=== PATIENT | female | born 1950 | race Caucasian/White ===

== ENCOUNTER 2019-01-15 20:33 | Inpatient (IN) | payer BC ==
[~2019-01-15] VITALS: Ht 160 cm; Wt 42.3 kg
--- NOTE | 2019-01-15 20:52 | NUR ---
Patient to ER bed 1 to gown for evaluation. Side rails up.
--- NOTE | 2019-01-15 20:58 | NUR ---
Pt complains of generalized weakness, numbness to bilateral feet, unintentional weight loss. Per angel, pt had gone to [place] two years ago and got mosquito bites. Since then, pt has been "losing weight drastically." Pt eats alot but does not gain any weight. Per daughter, pt has "unofficial diagnose of Parkinsons but is not sure because she never goes to the doctor." Pt had eaten Mediterranean food last night and had started to vomit multiple times after. No other injuries/complaints per patient or noted.
[2019-01-15 21:00] VITALS: BP_SYST 138
--- NOTE | 2019-01-15 21:00 | NUR ---
ER Dr. Cotto at bedside examining patient.
--- NOTE | 2019-01-15 21:08 | NUR ---
# 18 gauge angiocath placed to LT AC. Use of asceptic technique. Opsite placed over site. Blood return noted. Blood for lab drawn from site. Flushed with 10 cc of normal saline. No evidence of infiltration noted. Patient tolerated well.
[2019-01-15] MEDS ORDERED: NACL 0.9% 1,000 ML IV ONE (21:15)
[2019-01-15 21:18] LABS: BASOPHILS % (AUTO) 0.1 % (0.0-2.0); HEMATOCRIT 47.8 % (36-48); HEMOGLOBIN 15.7 g/dL (12.0-16.0); LYMPHOCYTES # (AUTO) 1.4 K/uL (1.0-5.5); LYMPHOCYTES % (AUTO) 14.4 % (20.5-51.5); MEAN CORPUSCULAR HEMOGLOBIN 31 pg (27-31); MEAN CORPUSCULAR HGB CONC 33 % (32-36); MEAN CORPUSCULAR VOLUME 95 fL (79.0-98.0); MONOCYTES # (AUTO) 0.3 K/uL (0.0-1.0); MONOCYTES % (AUTO) 3.2 % (1.7-9.3); NEUTROPHILS # (AUTO) 8.2 K/uL (1.8-7.7); NEUTROPHILS % (AUTO) 82.3 % (40.0-70.0); PLATELET COUNT (AUTO) 239 K/uL (130-430); RED BLOOD CELL COUNT(AUTO) 5.05 MIL/uL (4.2-6.2); RED CELL DISTRIBUTION WIDTH 12.8 % (9.0-15.0)
[2019-01-15 21:22] LABS: BILIRUBIN,URINE NEGATIVE (NEGATIVE); CLARITY/URINE CLEAR (CLEAR); COLOR,URINE YELLOW (YELLOW); GLUCOSE,URINE 3+ (NEGATIVE); KETONES,URINE 3+ (NEGATIVE); LEUKOCYTE ESTERASE ,URINE NEGATIVE (NEGATIVE); NITRITE, URINE NEGATIVE (NEGATIVE); PH,URINE 5.5 (5.0-8.0); PROTEIN URINE NEGATIVE (NEGATIVE); UROBILINOGEN,URINE 0.2 (0.2-1.0)
[2019-01-15 21:23] LABS: BLOOD, URINE TRACE (NEGATIVE)
[2019-01-15 21:32] LABS: CALCIUM 9.6 mg/dL (8.4-11.0); CREATININE 0.79 mg/dL (0.55-1.30); POTASSIUM 3.9 mmol/L (3.5-5.1)
[2019-01-15 21:43] LABS: PROTHROMBIN TIME 8.9 SECS (9.5-12.5)
[2019-01-15 21:57] LABS: INR 0.9 (0.8-1.2)
[2019-01-15 22:00] LABS: TOTAL BILIRUBIN 0.7 mg/dL (0.0-1.0)
[2019-01-15 22:01] LABS: ALBUMIN 3.8 g/dL (3.4-4.8)
[2019-01-15 22:16] LABS: BACTERIA,URINE FEW /HPF (None Seen); MUCUS,URINE 1+ /LPF (None Seen); YEAST,URINE Few /HPF (None Seen)
--- NOTE | 2019-01-15 23:25 | NUR ---
Re-checked blood sugar, 288. Dr. Cotto made aware.
[2019-01-16] VITALS (9 sets, daily range): BP systolic 113–175
[2019-01-16] MEDS ORDERED: NACL 0.9% 1,000 ML IV ONE (00:15)
--- NOTE | 2019-01-16 00:20 | NUR ---
IVF were administered pt tolerated well. No adverse reaction, will continue to monitor.
--- NOTE | 2019-01-16 00:53 | NUR ---
ER Dr. Cotto at bedside explaining results to patient/family.
--- NOTE | 2019-01-16 01:27 | NUR ---
Dr. Cotto on the phone speaking with Dr. Terrell for admission.
[2019-01-16] MEDS ORDERED: INSULIN REGULAR, HUMAN 10 UNITS/0.1 ML INJ IVP ONE (01:30)
[2019-01-16] MEDS ORDERED: ACETAMINOPHEN 325 MG TABLET PO PRN (01:45)
[2019-01-16] MEDS ORDERED: cloNIDine HCL 0.1 MG TABLET PO ONE (01:45)
--- NOTE | 2019-01-16 01:50 | NUR ---
Patient's blood pressure is elevated 177/85. Verbal order received to administer Clonidine 0.1mg PO. Medication was given.
--- NOTE | 2019-01-16 01:52 | NUR ---
Patient will be admitted to care of Dr. Terrell. Admitted to Telemetry unit. Will go to room 111 B. Belongings list completed. Summary report printed. Report will be given at bedside.
--- NOTE | 2019-01-16 01:56 | NUR ---
Transfer to Telemetry via ACLS protocol. Licensed nurse present. IV present no signs or symptoms of infiltration.
[2019-01-16 01:59] LABS: CALCIUM 9.6 mg/dL (8.4-11.0); CREATININE 0.89 mg/dL (0.55-1.30); POTASSIUM 3.9 mmol/L (3.5-5.1)
--- NOTE | 2019-01-16 02:00 | NUR ---
ADMISSION: The patient, LAM MARQUEZ, 68 y/o, F admitted by BRIAN MONTEIRO MD, with the diagnosis of Uncontrolled DM ,and dehydration to room 111 B . Addendum: 01/16/19 at 0235 by Claudio Siddiqui RN BP 175/82 - PT RECEIVED BP MEDS IN ER , WILL MONITOR . INFORMED PRIMARY RN
--- NOTE | 2019-01-16 02:00 | NUR ---
pt.received via the er-dept.pt.presents elevated b/p.elevated blood glucose.v/s upon arrival presents elevated b/p; pt.had received clonidien in the er-dept.pt.is order to receive iv fluids;ns@80ml/hr.pt.is scheduled ac/hs blood glucose assessment.language barrier extant;le[place]ese pt's primary language:degree of citizen of [place];fluency.call light/telephone placed w/in the reach of the pt.utilizing instructions provided in lebanese.
[2019-01-16 02:14] LABS: ALBUMIN 3.8 g/dL (3.4-4.8); THYROID STIMULATING HORMONE 0.95 uIu/mL (0.34-4.82); TOTAL BILIRUBIN 0.7 mg/dL (0.0-1.0)
--- NOTE | 2019-01-16 02:45 | NUR ---
i have re-assessed the blood glucose;value;256mg/dl.i have apprised the pt/dtr of the value. i have apprised the pt/dtr the blood glucose to be assessed;q-6rhs.
[2019-01-16] MEDS: NACL 0.9% 1,000 ML IV SCH ×2 (03:10→16:00)
--- NOTE | 2019-01-16 03:15 | NUR ---
i have initiated the administration of the maintanance iv fluids;ns@the rate;80-ml/hr;iv access: location;lt.antecubital: fossa.intact;patent.
--- NOTE | 2019-01-16 04:00 | NUR ---
pt.assessed.v/s assessed;b/p values remain elevated;to f/u md.pt.assisted to the restroom assisted return to bed. parkinson's tremors manifested.no c/o pian,nause.pt has requested snack.i have proved pudding/apple sauce; non-sweetened.general status stable.respiratory status stable.call light/telephone placed w/in the reach of the pt.
[2019-01-16] MEDS: INSULIN LISPRO SLIDING SCALE 100 UNITS/ML VIAL (humaLOG) SUBCUT PRN ×4 (05:43→21:02)
--- NOTE | 2019-01-16 06:28 | NUR ---
pt.assessed.v/s assessed;f/u b/p values;w/in normal limits.no c/o pain,nausea.pt.assessed for cleanliness.pt.repositioned.i have ass the blood glucose:value;345mg/dl.i have administered 8units;humalog insulin.general statsu stable.respiratory status stable.iv fluids infusing.call light/telephone placed w/in the reach of the pt.
--- NOTE | 2019-01-16 07:30 | NUR ---
Opening note Patient resting in bed, daughter at bedside. Patient is A/Ox4, no complaints of pain. IV patent, intact, and infusing fluids as ordered. No adverse side effects. No infiltration noted. On safety, and aspiration precautions, HOB kept elevated, bed in lowest position, bed alarm on, call light within reach. Patient in stable condition. Will continue to monitor.
[2019-01-16] MEDS ORDERED: INSULIN GLARGINE 100 UNITS/ML 10 ML VIAL SUBCUT ONE (08:30)
--- NOTE | 2019-01-16 09:30 | NUR ---
No home medications Patient takes no medications at home according to patient and family member. family member stated patient does not go to her doctors appointment, and does not take any medication for hypertension or diabetes.
[2019-01-16 10:34] LABS: BASOPHILS % (AUTO) 0.2 % (0.0-2.0); HEMATOCRIT 40.7 % (36-48); HEMOGLOBIN 13.6 g/dL (12.0-16.0); LYMPHOCYTES # (AUTO) 2.6 K/uL (1.0-5.5); LYMPHOCYTES % (AUTO) 22.7 % (20.5-51.5); MEAN CORPUSCULAR HEMOGLOBIN 31 pg (27-31); MEAN CORPUSCULAR HGB CONC 33 % (32-36); MEAN CORPUSCULAR VOLUME 94 fL (79.0-98.0); MONOCYTES # (AUTO) 0.6 K/uL (0.0-1.0); MONOCYTES % (AUTO) 5.5 % (1.7-9.3); NEUTROPHILS # (AUTO) 8.2 K/uL (1.8-7.7); NEUTROPHILS % (AUTO) 71.6 % (40.0-70.0); PLATELET COUNT (AUTO) 190 K/uL (130-430); RED BLOOD CELL COUNT(AUTO) 4.34 MIL/uL (4.2-6.2); RED CELL DISTRIBUTION WIDTH 12.6 % (9.0-15.0); WHITE BLOOD COUNT (AUTO) 11.5 K/uL (4.8-10.8)
[2019-01-16 11:23] LABS: ALBUMIN 2.7 g/dL (3.4-4.8); CALCIUM 8.6 mg/dL (8.4-11.0); CREATININE 0.51 mg/dL (0.55-1.30); POTASSIUM 3.5 mmol/L (3.5-5.1); TOTAL BILIRUBIN 0.7 mg/dL (0.0-1.0)
--- NOTE | 2019-01-16 11:30 | NUR ---
Accu check Blood sugar checked and insulin coverage given as ordered. No adverse side effects noted. Water refilled, offered to assist patient to the restroom. Patient declined. no other needs at this time.
--- NOTE | 2019-01-16 13:20 | NUR ---
Ambulation Patient ambulated to the restroom and back to bed with steady gait. No dizziness noted. patient in stable condition.
[2019-01-16] MEDS ORDERED: metFORMIN HCL 500 MG TABLET PO ONE (15:00)
[2019-01-16] MEDS ORDERED: cloNIDine HCL 0.1 MG TABLET PO PRN (15:30)
[2019-01-16] MEDS ORDERED: LISINOPRIL 5 MG TABLET PO ONE (15:30)
--- NOTE | 2019-01-16 15:34 | NUR ---
Elevated BP/ Dr. Terrell rounds Patients BP 168/78, made aware. new Orders noted.
--- NOTE | 2019-01-16 15:35 | NUR ---
DC Planning: Met with pt and son and dtr at bedside, informed them of possible transferring to other hospital per their contracted medical group. The pt and family agreed with the transfer plan. [facility] spoke with Corinne at [facility], who requested to transfer pt to [facility]. And after peer to peer, dr. Terrell ordered pt transfer to [facility]. >> Per Corinne, the pt is accepted by dr. Darien Gonzalez at [facility], pending bed assignment and report phone number. Corinne will call RN later to give the room and call number. HEIKE Wall made aware. >> Ambulance transportation arranged by Corinne with [facility] transfer/booking number # [id number]. >> [facility] Sun at [facility] # [phone]. Addendum: 01/16/19 at 1548 by Kyle Arita RN >> LVM notified son/[place]es # [phone] regarding transfer to [facility] per insurance net work. Addendum: 01/16/19 at 1638 by Kyle Arita RN >> Per Corinne: The pt is assigned to room # 220-1 RN to report # [phone]. >> [facility] transport # [phone] apple picking supervisor time at 6 pm-- HEIKE Wall made aware. >> 2nd VM left for son/Citlaly that the pt. will be transferred to [facility] at 6 pm today.
--- NOTE | 2019-01-16 16:30 | NUR ---
nausea/Vomiting patient noted with vomiting x2 episode, MD made aware, new order for zofran, noted and carried out.
[2019-01-16] MEDS ORDERED: ONDANSETRON HCL 4 MG/2 ML VIAL IVP PRN (16:45)
--- NOTE | 2019-01-16 17:45 | NUR ---
report/Transfer Report given to Kenneth at [facility], patient to be seen by Dr. Gonzalez at [facility]
--- NOTE | 2019-01-16 18:45 | NUR ---
Closing note Patient resting in bed, daughter at bedside, no complaints of pain. IV patent, intact, and infusing fluids as ordered. No adverse side effects. No infiltration noted. On safety, and aspiration precautions, HOB kept elevated, bed in lowest position, bed alarm on, call light within reach. Patient in stable condition. All needs met at this time. patient awaiting transfer to [facility].
--- NOTE | 2019-01-16 19:35 | NUR ---
Initial Note Received patient awake, alert and oriented. Family at the bedside. No SOB noted. Denies any pain or n/v at this time. Shakes when moving. IVF infusing. Skin intact and no peripheral edema noted. Self reposition. Care and monitoring will be provided per protocol. Call light within reach. Bed alarm on and at lowest position at all times. Needs attended. Kept warm and comfortable.
--- NOTE | 2019-01-16 20:20 | NUR ---
RN Note Awake and alert. Blood sugar was 158, coverage given. Patient's family has been asking what time the ambulance will come. It was endorsed to me that ambulance will arrive at 8:45 PM. Made sure belongings are with the family. Reinforced discharge instructions. Needs attended. Kept warm and comfortable.
--- NOTE | 2019-01-16 22:10 | NUR ---
Ambulance arrived Ambulance arrived. Given report to ambulance staff. VS stable. Belongings noted. IV line disconnected from IVF. Denies any pain, SOB or n/v at this time. Needs attended.
--- NOTE | 2019-01-16 22:20 | NUR ---
Discharged Patient left with ambulance staff in a gurney with family. Patient left with no acute distress.
[2019-01-17] MEDS ORDERED: metFORMIN HCL 500 MG TABLET PO SCH (08:00)
[2019-01-17] MEDS ORDERED: LISINOPRIL 5 MG TABLET PO SCH (09:00)
== END 2019-01-16 20:20 | disposition short-term general hospital (02) | DRG 637 ==
LOC: SED 20:33 → STU 01-16 01:34
PROVIDERS: ADMIT Internal Medicine; ATTEND Internal Medicine
DX: E11.65 Type 2 diabetes mellitus with hyperglycemia (principal); E11.00 Type 2 diabetes mellitus with hyperosmolarity without nonketotic hyperglycemic-hyperosmolar coma (NKHHC); E87.1 Hypo-osmolality and hyponatremia; Z88.0 Allergy status to penicillin
CPT/HCPCS: 36415; 80053; 81000-TC; 82962; 83605; 84443-TC; 84484; 85025; 85610-TC; 85730-TC; 87040-TC; 93005; 96361; 96374; 99285; G0378; J1815; J2405; J7030